=== PATIENT | female | born 1975 | race Caucasian/White ===

== ENCOUNTER 2018-03-30 10:13 | Inpatient (IN) | payer MEDICARE, MEDICAID ==
[2018-03-30] MEDS ORDERED: NS 0.9% 1000 ML** 1,000 ML IV.FLUID IV ONE (10:24)
--- NOTE | 2018-03-30 10:26 | ED ---
HPI Febrile Illness - HPI Summary HPI Summary: A 42 y/o morbidly obese F sent to ED from [facility] for fever (102.8 F) onset [employer]. Pt was unaware she had a fever when she arrived at her wound clinic appointment. Patient has acute on chronic bilateral LE wounds. She has had cellulitis on her front RLE since December, which is unusual for her. She has had past cellulitis on her LLE intermittently, but says her RLE is typically clear. She was evaluated at the [place] ED and given Doxy. Her last dose was a few weeks ago. Associated sx: abd pain, excess thirst, urinary sx. Denies CP. She did have her flu shot this year. Surgeries include hysterectomy, cataracts. Vitals at bedside: HR: 117 bpm, BP: 141/72. - History of Current Complaint Chief Complaint: EDFever Time Seen by Provider: 03/30/18 10:24 Hx Obtained From: Patient Onset/Duration: Started Weeks Ago - LE cellulitis, Atraumatic, Still Present Timing: Constant Temperature: 102.8 F - from wound clinic Initial Severity: Moderate Current Severity: Severe Pain Intensity: 6 Pain Scale Used: 0-10 Numeric Aggravating Factors: Nothing Alleviating Factors: Nothing Associated Signs and Symptoms: Chills, Diaphoresis, Drainage - from bilat leg wounds, Leg Swelling - bilat, Other: - pos: abd pain, excess thirst, urinary sx. neg: CP. Related History: Similar Diagnosis as: - cellulitis - Allergy/Home Medications Allergies/Adverse Reactions: Allergies Allergy/AdvReac Type Severity Reaction Status Date / Time cephalexin [From Keflex] Allergy Diarrhea Verified 03/30/18 12:07 levofloxacin [From Levaquin] Allergy Rash Verified 03/30/18 12:07 mercaptopurine Allergy See Comment Verified 03/30/18 12:08 mesalamine [From Asacol] Allergy Headache Verified 03/30/18 12:07 pantoprazole Allergy Vomiting Verified 03/30/18 12:07 paroxetine [From Paxil] Allergy Pain Verified 03/30/18 12:07 Penicillins Allergy Rash Verified 03/30/18 12:07 Sulfa (Sulfonamide Allergy Rash Verified 03/30/18 12:07 Antibiotics) vancomycin Allergy Rash Verified 03/30/18 12:07 zolpidem [From Ambien] Allergy Hallucinati Verified 03/30/18 12:07 ons cyanocobalamin (vitamin B12) AdvReac See Comment Verified 03/30/18 15:25 chlorine Allergy Rash Uncoded 03/30/18 12:07 lobster Allergy Abdominal Uncoded 03/30/18 12:07 Pain tea Allergy Vomiting Uncoded 03/30/18 12:07 uniboot Allergy Rash Uncoded 03/30/18 12:07 Home Medications: Home Medications Acetaminophen [Tylenol Extra Strength] 1,000 mg PO TID 03/30/18 [History Confirmed 03/30/18] Amantadine CAP* [Symmetrel CAP*] 100 mg PO BID 03/30/18 [History Confirmed 03/30] Budesonide CAP(NF) 9 mg PO DAILY 03/30/18 [History Confirmed 03/30/18] Calcium Carbonate [Calcium] 1,200 mg PO BID 03/30/18 [History Confirmed 03/30/18 ] Carbidopa/Levodop 25/100 MG(*) [Sinemet 25/100 TAB(*)] 1 tab PO 2000 03/30/18 [ History Confirmed 03/30/18] Carbidopa/Levodop 25/100 MG(*) [Sinemet 25/100 TAB(*)] 1 tab PO BEDTIME [History Confirmed 03/30/18] Carbidopa/Levodop 25/100 MG(*) [Sinemet 25/100 TAB(*)] 1.5 tab PO BID 03/30/18 [ History Confirmed 03/30/18] Carbidopa/Levodop 25/100 MG(*) [Sinemet 25/100 TAB(*)] 2 tab PO BID 03/30/18 [ History Confirmed 03/30/18] Cholestyramine/Aspartame [Prevalite Packet] 4 gm PO BID PRN 03/30/18 [History Confirmed 03/30/18] Ergocalciferol (Vitamin D2) [Vitamin D2] 25 mcg PO BID 03/30/18 [History Confirmed 03/30/18] Etodolac [Etodolac ER] 400 mg PO TID 03/30/18 [History Confirmed 03/30/18] Furosemide TAB* [Lasix TAB*] 20 mg PO DAILY 03/30/18 [History Confirmed 03/30/18 ] Levothyroxine TAB* [Synthroid TAB*] 75 mcg PO DAILY 03/30/18 [History Confirmed 03/30/18] Melatonin 5 mg PO BID 03/30/18 [History Confirmed 03/30/18] Melatonin 10 mg PO 2100 03/30/18 [History Confirmed 03/30/18] Metronidazole (TOPICAL)(NF) [Metrocream (NF)] 0.75 % TOPICAL BID 03/30/18 [ History Confirmed 03/30/18] Omeprazole (Nf) [Prilosec (NF)] 40 mg PO DAILY 03/30/18 [History Confirmed 03/30] Potassium Chlor TAB* [Klor Con ER TAB*] 20 meq PO DAILY 03/30/18 [History Confirmed 03/30/18] Ranitidine TAB (NF) [Zantac TAB (NF)] 150 mg PO BID PRN 03/30/18 [History Confirmed 03/30/18] Sertraline* [Zoloft*] 25 mg PO DAILY PRN 03/30/18 [History Confirmed 03/30/18] Sertraline* [Zoloft*] 100 mg PO DAILY 03/30/18 [History Confirmed 03/30/18] diPHENhydraMINE PO* [Benadryl PO 25 MG TAB*] 25 mg PO DAILY 03/30/18 [History Confirmed 03/30/18] hydrOXYzine HCL TAB* [Atarax 25 MG TAB*] 25 mg PO TID PRN 03/30/18 [History Confirmed 03/30/18] PMH/Surg Hx/FS Hx/Imm Hx Previously Healthy: No - cellulitis Endocrine/Hematology History: Reports: Other Endocrine/Hematological Disorders - morbid obesity Respiratory History: Reports: Hx Pulmonary Embolism - 2012 GI History: Reports: Hx Crohn's Disease, Other GI Disorders - colitis Musculoskeletal History: Reports: Hx Bursitis, Hx Congenital Bone Abnormalities - hip dysplasia , Hx of Fracture(s) - pelvis, LUE Sensory History: Reports: Other Sensory Impairments - ocular rosacea - Surgical History Surgery Procedure, Year, and Place: hip surg at , [facility], cholecystectomy Infectious Disease History: No Infectious Disease History: Denies: Traveled Outside the [place] in Last 30 Days - Family History Known Family History: Positive: Hypertension, Diabetes - Social History Occupation: Unemployed - OTHER Lives: With Family Alcohol Use: None Hx Substance Use: No Smoking Status (MU): Never Smoked Tobacco Review of Systems Positive: Fever, Chills, Skin Diaphoresis, Other - pos: excess thirst Negative: Chest Pain Respiratory: Negative Positive: Abdominal Pain Positive: other - pos: urinary sx (unspecified) Musculoskeletal: Other - pos: weeping wounds with pain to bilat LE Skin: Other - redness bilat lower legs, weeping wounds Neurological: Negative Psychological: Normal All Other Systems Reviewed And Are Negative: Yes Physical Exam - Summary Physical Exam Summary: Appearance: Ill-appearing, moderate pain distress, morbidly obese Skin: Warm, color reflects adequate perfusion, dry. Circumferential redness and weeping of approximately 10cm x 10cm wound to medial RLE posteriorly. A 5cm x 3cm wound that is draining. Silver scales, and bilateral circumferential redness to BLE. A 7cm x 5cm wound to RLE laterally. There is also a 5cm x 7cm wound on LLE. Head: Normal Head/Face inspection, atraumatic Eyes: Conjunctiva clear ENT: Normal inspection Neck: Supple, no nodes, no JVD Respiratory: Lungs clear, normal breath sounds, no respiratory distress Cardio: RRR, No murmur, pulses normal, brisk capillary refill Abdomen: Soft, intertrigonal redness. obese, diffusely tender Bowel sounds: Present Musculoskeletal: Strength Intact/ROM limited by body habitus, weeping wounds as above, bilat 3+ edema Psychological: Normal Neuro: Alert, muscle tone normal, no focal deficit Genital: bilateral vulvae and perineum are red with open wounds; atwood placed by nurses. She is draining dark cloudy urine Triage Information Reviewed: Yes Vital Signs On Initial Exam: Initial Vitals Temp Pulse Resp BP Pulse Ox 102.8 F 107 20 157/102 100 03/30/18 10:17 03/30/18 10:17 03/30/18 10:17 03/30/18 10:17 03/30/18 10:17 Vital Signs Reviewed: Yes Diagnostics - Vital Signs Vital Signs Temp Pulse Resp BP Pulse Ox 03/30/18 10:17 102.8 F 107 20 157/102 100 - Laboratory Result Diagrams: 03/30/18 11:12 03/30/18 11:12 Lab Statement: Any lab studies that have been ordered have been reviewed, and results considered in the medical decision making process. - Radiology CXR Radiology Interpretation Completed By: Radiologist Summary of Radiographic Findings: IMPRESSION: No evidence for acute disease. ED provider has reviewed this report. - EKG 10:41 Cardiac Rate: Tachycardia - 106 bpm EKG Rhythm: Sinus Tachycardia Summary of EKG Findings: An EKG at 10:41 reveals sinus tachy at 106 bpm with LAD with artifact. No acute changes. Course/Dx - Course Course Of Treatment: Pt is a 42 y/o F sent from the [facility] for fever ( 102.8 F). Pt was unaware she had a fever when she arrived for her appointment. Patient has acute on chronic bilateral LE wounds. She has had cellulitis on her front RLE since December, which is unusual for her. She has had past cellulitis on her LLE intermittently, but says her RLE is typically clear. She was evaluated at the [place] ED and given Doxy. Her last dose was a few weeks ago. Associated sx: abd pain, excess thirst, urinary sx. Denies CP. She did have her flu shot this year. Allergies noted, high blood pressure noted. Pt medications reviewed this visit. CXR is negative. An EKG at 10:41 reveals sinus tachy at 106 bpm with LAD with artifact. No acute changes. UA results show positive ketones, 2+ bilirubin, positive urobilinogen. Rapid flu A and B are negative. Sepsis protocol initiated. 30cc/kg given fluids. Antibiotics per hospitalist due to chronic nature of wounds, and allergies and exposure to multiple antibiotics in the past. . Pt is admitted to hospitalist service for further evaluation and treatment of bilateral LE cellulitis and leg edema - Febrile Illness Differential Diagnoses: Bacteremia, Cellulitis, Sepsis - Diagnoses Provider Diagnoses: Fever, Cellulitis, Morbid obesity, Open wound of both legs with complication, Sepsis - Provider Notifications Discussed Care Of Patient With: Luis Eduardo Worthy - hospitalist Time Discussed With Above Provider: 12:55 Instructed by Provider To: Admit As Inpatient - Critical Care Time Critical Care Time: 30-74 min - 30 minutes Discharge - Sign-Out/Discharge Documenting (check all that apply): Patient Departure - ADMIT Patient Received Moderate/Deep Sedation with Procedure: No - Discharge Plan Condition: Stable Disposition: ADMITTED TO [facility] - Billing Disposition and Condition Condition: STABLE Disposition: Admitted to [facility] - Attestation Statements Document Initiated by Scribe: Yes Documenting Scribe: Real Ariza Provider For Whom Kylieibsara is Documenting (Include Credential): Dr. Shanna Bañuelos MD Scribe Attestation: I, Rela Ariza, scribed for Dr. Shanna Bañuelos MD on 03/31/18 at 0020. Scribe Documentation Reviewed: Yes Provider Attestation: The documentation as recorded by the kylieibsara, Real Ariza accurately reflects the service I personally performed and the decisions made by me, Dr. Shanna Bañuelos MD Status of Scribe Document: Viewed
[2018-03-30 11:09] LABS: Activated Partial Thrombo Time 27.5 seconds (26.0-36.3); INR 0.98 (0.77-1.02)
[2018-03-30 11:22] LABS: ABS Basophils 0 10^3/ul (0-0.2); ABS Eosinophils 0 10^3/ul (0-0.6); ABS Lymphocytes 0.4 10^3/ul (1.0-4.8); ABS Monocytes 0.4 10^3/ul (0-0.8); ABS Neutrophils 10.4 10^3/ul (1.5-7.7); ABS Nucleated RBC 0 10^3/ul; Eosinophil % 0.1 %; Hematocrit 38 % (35-47); Hemoglobin 12.3 g/dl (12.0-16.0); Lymphocyte % 3.6 %; Mean Corpuscular HGB Conc 33 g/dl (31-36); Mean Corpuscular Hemoglobin 29 pg (27-31); Mean Corpuscular Volume 88 fL (80-97); Mean Platelet Volume 7.1 fL (7.4-10.4); Nucleated Red Blood Cells % 0.1; Platelet Count 208 10^3/ul (150-450); Red Blood Count 4.31 10^6/ul (4.00-5.40); Red Cell Distribution Width 15 % (10.5-15); White Blood Count 11.2 10^3/ul (3.5-10.8)
[2018-03-30 11:39] LABS: Albumin 3.7 g/dL (3.2-5.2); Albumin/Globulin Ratio 1.3 (1-3); BUN/Creatinine Ratio 24.5 (8-20); C Reactive Protein 100.51 mg/L (<8.01); Calcium 8.6 mg/dL (8.6-10.3); EGFR Non-African American 137.2 (>60); Globulin 2.8 g/dL (2-4); Potassium 3.8 mmol/L (3.5-5.0); Total Bilirubin 0.9 mg/dL (0.2-1.0); Total Protein 6.5 g/dL (6.4-8.9)
[2018-03-30] MEDS ORDERED: Ketorolac INJ* 30 MG/ML 1 ML VIAL IV PUSH ONE (11:49)
[2018-03-30 12:11] LABS: Urine Appearance Cloudy; Urine Bilirubin 2+ (Negative); Urine Blood Negative (Negative); Urine Color Yellow; Urine Glucose Negative (Negative); Urine Ketones Trace (Negative); Urine Nitrite Negative (Negative); Urine Protein Negative (Negative); Urine Specific Gravity 1.029 (1.010-1.030); Urine Urobilinogen Positive (Negative)
[2018-03-30 12:32] LABS: Influenza A Molecular NEGATIVE (Negative); Influenza B Molecular NEGATIVE (Negative)
[2018-03-30] MEDS ORDERED: Ondansetron INJ* 2 MG/ML VIAL IV PRN (13:46)
[2018-03-30] MEDS ORDERED: Acetaminophen TAB* 325 MG PO PRN (13:46)
[2018-03-30] MEDS ORDERED: Clindamycin 600 MG/D5W BAG(*) 600 MG/50 ML BAG IV ONE (13:46)
[2018-03-30] MEDS ORDERED: LORazepam INJ* 2 MG/ML 1 ML VIAL IV PUSH ONE ×2 (13:58→21:26)
[2018-03-30] MEDS ORDERED: Carbidopa/Levodop 25/100 MG TAB(*) PO ONE (14:10)
[2018-03-30] MEDS ORDERED: HYDROmorphone INJ1* 1 MG/ML SYRINGE IV ONE (14:20)
[2018-03-30] MEDS ORDERED: HYDROmorphone INJ1* 1 MG/ML SYRINGE ONE (14:22)
[2018-03-30] MEDS ORDERED: Sertraline* 25 MG TAB PO PRN (14:41)
[2018-03-30] MEDS ORDERED: hydrOXYzine HCL TAB* 25 MG PO PRN (14:41)
[2018-03-30] MEDS ORDERED: Famotidine TAB* 20 MG PO PRN (14:41)
[2018-03-30] MEDS ORDERED: Cholestyramine Resin* 4 GM POWDER PO PRN (14:41)
[2018-03-30 14:57] LABS: Erythrocyte Sed Rate 39 mm/Hr (0-20)
[2018-03-30] MEDS: Heparin VIAL(*) 5000 UNITS/ML VIAL (FIVE THOUSAND) SUBCUT SCH ×2 (16:33→21:50)
--- NOTE | 2018-03-30 17:44 | HP ---
CC: [facility] * ADMISSION HISTORY AND PHYSICAL: DATE OF ADMISSION: 03/30/18 PRIMARY CARE PROVIDER: [facility]. The patient has not been assigned a primary care provider yet. MY ATTENDING WHILE IN THE HOSPITAL: Dr. Luis Eduardo Worthy.* (DICTATED BY KIAH BANUELOS) CHIEF COMPLAINT: Leg wounds, fever. HISTORY OF PRESENT ILLNESS: Ms. Connolly is a 42-year-old female with past medical history significant for Crohn's disease, morbid obesity, osteoarthritis , lower extremity wounds and parkinsonism, who presents to the emergency department after transferring her care for her lower extremity wounds from the [facility] to the [facility]. The patient upon arrival there was found to have a fever and was sent over. The patient has had numerous episodes of cellulitis in her left lower extremity, which have all been treated appropriately. The patient never had issues with her right lower extremity until last January when she had likely reaction to ANGELA stocking and developed a wound there. The patient was treated approximately 1 month ago with doxycycline, which improved her lower extremity redness and pain, but did not fully resolve it. The patient has had a long history of lower extremity wounds and swelling. The patient is morbidly obese and the patient has been following with Wound Clinic for a long period of time. The patient has been having her wounds treated only with ABD pads and wrap gauze. The patient has not been having any other antimicrobial treatments to her lower legs and has not been having her normal wound care recently either due to her visiting nurse running out of gauze. The patient has not been having any subjective fevers. The patient always feels cold, but has not had any excessive chills. The patient has Crohn's disease and had 3 Crohn flares in the last year and each time with these she has been put on pulse doses of prednisone and has developed cellulitis. The patient does not feel as though she is having Crohn's flare now. The patient has not had abdominal pain or diarrhea, blood in her stool or mucus. The patient is not currently on prednisone treatment. Her last prednisone treatment was in September of last year. The patient is feeling tremulous. The patient has parkinsonism and follows with neurologist in [place]. The patient is on carbidopa/levodopa and missed her afternoon dose. The patient has no difficulty swallowing. The patient has had no cough, shortness of breath, chest pain, pain with urination. The patient has had numerous D and Cs for abnormal uterine bleeding and has recently had her Mirena removed several months ago and her last menstrual period had much more blood than normal, but she is not currently on her menstrual period. The patient has significant pain in her legs and back, which Toradol helped to decrease, but that is coming back. The patient states she does not normally have back pain, but is sensitive to it when she is in uncomfortable beds. The patient denies radicular symptoms. The patient in the emergency department had a fever, white count and tachycardia. Due to concern for cellulitis as well as lower leg wounds, we were asked to evaluate the patient for admission to the hospital. PAST MEDICAL HISTORY: Crohn's; osteoporosis; cataracts; arthritis; anemia; neuropathy; parkinsonism; anxiety; depression; rosacea; lumbar herniated disks; history of hypertension, resolved; mild intermittent asthma; Raynaud's syndrome ; irritable bowel syndrome; history of vaginal cysts, polyps and hyperplasia; ocular migraine; lower extremity wounds; pelvic fracture; history of provoked DVT and pulmonary embolism after surgery. PAST SURGICAL HISTORY: Congenital hip fixation at , numerous dilation and curettages, cholecystectomy. The patient has never had an abdominal surgery. Numerous colonoscopies. MEDICATIONS: 1. Amantadine 100 mg p.o. twice daily. 2. Hydroxyzine 25 mg p.o. 3 times daily. 3. Benadryl 25 mg p.o. nightly. 4. Budesonide enteric-coated 3 mg p.o. 3 times a day. 5. Calcium 1200 mg p.o. twice daily. 6. Carbidopa/levodopa 25/100 five times daily. 7. Carbidopa/levodopa ER 25/100 one tab p.o. nightly. 8. Prevalite 5.5 g 2 times daily. 9. Etodolac 400 mg p.o. 3 times daily. 10. Levothyroxine 75 mcg p.o. daily. 11. MetroCream 0.75% one to two applications daily. 12. Melatonin 20 mg nightly. 13. Miconazole powder 2% as needed. 14. Omeprazole delayed release 40 mg p.o. daily. 15. Ranitidine 150 mg p.o. daily. 16. Tylenol 500 mg p.o. 6 times daily as needed. 17. Vitamin D 25 mcg p.o. twice daily. 18. Sertraline 125 mg p.o. daily. 19. Furosemide 20 mg p.o. daily as needed for fluid retention. 20. Potassium 20 mEq p.o. daily when taking furosemide. ALLERGIES: TEA, LOBSTER, LAVENDER, CHLORINE, TUBIGRIP COMPRESSION SOCKS, UNNA BOOT, AMBIEN, ASACOL, PAXIL, CONTROL PILLS, PENICILLIN causes rash, KEFLEX causes diarrhea, VANCOMYCIN causes rash, SULFA causes rash, PANTOPRAZOLE causes vomiting, LEVAQUIN causes rash, MERCAPTOPURINE caused cytopenias, B12 PILLS caused bladder pain. FAMILY HISTORY: Father has ischemic colitis, high blood pressure, carotid artery stenosis, lung cancer, CVA. The patient's mother is healthy. The patient's uncle had epilepsy. SOCIAL HISTORY: The patient never smoked, drank, or used illicit drugs. 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 The patient is not and has no children. The patient's mother, Corrine Connolly, will be her surrogate decision maker. REVIEW OF SYSTEMS: A 14-point review of systems was reviewed with the patient and is negative except as above in the HPI. PHYSICAL EXAMINATION GENERAL: The patient is a 42-year-old female with obvious tremor, who is sitting in the bed, in no acute distress. VITAL SIGNS: At the time of evaluation, temperature 102.8, pulse rate 107, respiratory rate 20, oxygen saturation 100% on room air, blood pressure 157/102. HEENT: Head: Normocephalic, atraumatic. Sclerae anicteric. No conjunctival injection. Nasal mucosa moist. Oral mucosa moist. No pharyngeal erythema, discharge, or exudate. NECK: Supple, nontender. No lymphadenopathy. No carotid bruits auscultated. No JVD. RESPIRATORY: Clear to auscultation bilaterally. No wheezes, rales, or rhonchi. Diminished breath sounds throughout. CARDIAC: Regular rate and rhythm. No clicks, murmurs, gallops, or rubs. Pulses are 2+ in the bilateral dorsalis pedis, posterior tibialis, and radial areas. 4+ bilateral lower extremity edema noted. ABDOMEN: Soft, nontender, nondistended. Bowel sounds present and normoactive in all 4 quadrants. No hepatosplenomegaly. No abdominal bruits auscultated. No hepatojugular reflux. GENITOURINARY: No suprapubic or CVA tenderness. Vulvar irritation. Ivey in place draining dark urine with sediment. NEURO: Cranial nerves II through XII intact. No focal deficits. Alert and oriented x3. PSYCHIATRIC: Pleasant and cooperative. SKIN: Vulvar irritation as above. Bilateral lower extremities erythematous up to the knee with large open weeping areas on the bilateral calves circumferentially without purulent discharge, but associated erythema. DIAGNOSTIC STUDIES/LAB DATA: White blood cell count 11.2, hemoglobin 12.3, platelet count 208. INR 0.98, APTT 27.5. Sodium 135, potassium 3.8, chloride 103, carbon dioxide 24, anion gap 4, BUN 12, creatinine 0.49, glucose 107, lactic acid 1.1, calcium 8.6. Bilirubin 0.9, AST 14, ALT 14, alkaline phosphatase 17. Creatine kinase 24, troponin I of 0.00, CRP 100.51, BNP 52. Protein 6.5, albumin 3.7, globulin 2.8. Urine is yellow, cloudy, positive ketones, positive bilirubin and urobilinogen, negative nitrite, leukocyte esterase and glucose. Influenza A and B negative. Bilateral lower extremity wound PCR negative for MRSA, Staph aureus bilaterally. Studies: Chest x-ray shows no active cardiopulmonary disease. Electrocardiogram shows left axis deviation, tachycardia. No hypertrophy or enlargement. Incomplete right bundle branch block. Poor quality study due to tremor. No other significant abnormalities. No prior study to compare. ASSESSMENT AND PLAN/IMPRESSION: Ms. Connolly is a 42-year-old female with a past medical history significant for recurrent lower extremity cellulitis, Crohn's disease, provoked deep venous thrombosis and pulmonary embolism and parkinsonism , who presents to the emergency department from the [facility] Clinic for high fevers and increasing pain and erythema in her lower extremities. The patient will be admitted to the hospital for cellulitis causing sepsis and will be started on empiric antibiotics and monitored closely for improvement as well as wound care. 1. Bilateral lower extremity cellulitis. The patient has chronic wounds on her bilateral lower extremities. The patient has recurrent cellulitis in her left leg, but her right leg also appears to have cellulitis and is painful. The patient has significant swelling in her lower extremities. The patient will be diuresed. The patient will likely not tolerate compression at this time. The patient should have her legs elevated as much as possible. The patient will have a wound care consultation. The patient will be started on clindamycin for empiric coverage of strep and staph. The patient's wound cultures are pending. If the patient has no improvement, Infectious Disease consultation should be considered. The patient will have her home dressings of ABD pads and wrap gauze for now pending Wound Care consideration. The patient will have bilateral lower extremity Doppler to rule out deep venous thrombosis contributing to her swelling and cellulitis as the patient has a history of provoked deep venous thrombosis. The patient will be on probiotic while on clindamycin and monitored for C. difficile. 2. Sepsis. The patient is septic with elevated temperature, pulse rate, and white blood cell count. The patient received her fluid bolus while in the hospital. Given the patient's normotensive status and her lower extremity cellulitis, we will not continue fluids at this time. The patient has no signs of end organ dysfunction and her lactic acid is normal. 3. Crohn's disease. The patient is currently not having a Crohn's flare, though she had 3 last year. Continue the patient's budesonide. Monitor closely for C. diff, which may complicate Crohn's disease. 4. Parkinsonism. Continue the patient's carbidopa/levodopa and amantadine. 5. Osteoporosis. Continue the patient's vitamin D and calcium. 6. High blood pressure. The patient is currently normotensive. We will not treat blood pressure due to sepsis. 7. DVT prophylaxis: The patient has a history of provoked deep venous thrombosis. She will have heparin subcu and leg elevation as tolerated. 8. FEN: The patient will have a heart-healthy diet without caffeine. The patient will have no more fluids as above. 9. Disposition: The patient is admitted inpatient for lower extremity cellulitis and sepsis. TIME SPENT: Approximately 60 minutes was spent on the admission of this patient , 30 of which was spent [id number] with the patient obtaining history and physical and discussing treatment plan. This plan was discussed with my attending, Dr. Luis Eduardo Worthy, and he is in agreement. KIAH BANUELOS [id number] #: [id number] [place]
[2018-03-30] MEDS: Ketorolac INJ* 15 MG/ML 1 ML VIAL IV PUSH PRN (17:47)
[2018-03-30] MEDS: Calcium Carbonate TAB* 1250 MG (CALCIUM 500 MG) PO SCH (20:17)
[2018-03-30] MEDS: Acetaminophen TAB* 325 MG PO SCH (20:17)
[2018-03-30] MEDS: Carbidopa/Levodop 25/100 MG TAB(*) PO SCH (20:17)
[2018-03-30] MEDS: Amantadine CAP* 100 MG PO SCH (20:17)
[2018-03-30] MEDS: Melatonin 3 MG TAB PO SCH (20:18)
[2018-03-30] MEDS: Lactobacillus Acidophilus* 1 TAB PO SCH (20:18)
[2018-03-30] MEDS: LORazepam TAB(*) 0.5 MG PO PRN (20:18)
[2018-03-30] MEDS: Carbidopa/Levodop CR 50/200(*) TAB.CR PO SCH (20:18)
[2018-03-30] MEDS: oxyCODONE TAB* 5 MG TAB PO PRN (20:24)
[2018-03-30] MEDS ORDERED: ETODOLAC 400 MG PO SCH (21:00)
[2018-03-30] MEDS ORDERED: Metronidazole (TOPICAL)(NF) 45 GM TUBE TOPICAL SCH (21:00)
[2018-03-30] MEDS ORDERED: ERGOCALCIFEROL 25 MCG PO SCH (21:00)
[2018-03-30] MEDS ORDERED: NON FORMULARY MED* (Melatonin [Melatonin] 5 MG) PO SCH (21:00)
[2018-03-30] MEDS ORDERED: LORazepam INJ* 2 MG/ML 1 ML VIAL ONE (21:40)
[2018-03-30] MEDS: NS 0.9% 1000 ML** 1,000 ML IV SCH (21:46)
[2018-03-30] MEDS: Nystatin TOP POWDER* 15 GM BTL TOPICAL SCH (21:50)
[2018-03-30] MEDS: Clindamycin 600 MG/D5W BAG(*) 600 MG/50 ML BAG IV SCH (21:50)
[2018-03-31] MEDS: oxyCODONE TAB* 5 MG TAB PO PRN ×3 (02:54→19:36)
[2018-03-31] MEDS: Ketorolac INJ* 15 MG/ML 1 ML VIAL IV PUSH PRN ×3 (02:55→19:38)
[2018-03-31] MEDS: Clindamycin 600 MG/D5W BAG(*) 600 MG/50 ML BAG IV SCH ×3 (05:16→21:48)
[2018-03-31] MEDS: Heparin VIAL(*) 5000 UNITS/ML VIAL (FIVE THOUSAND) SUBCUT SCH ×3 (05:17→21:44)
[2018-03-31] MEDS: Levothyroxine TAB* 75 MCG TAB PO SCH (05:17)
[2018-03-31] MEDS: Carbidopa/Levodop 25/100 MG TAB(*) PO SCH ×5 (05:21→21:44)
[2018-03-31] MEDS: NS 0.9% 1000 ML** 1,000 ML IV SCH ×2 (05:24→14:23)
[2018-03-31] MEDS ORDERED: Budesonide CAP(NF) 3 MG PO SCH (09:00)
[2018-03-31] MEDS: Sertraline* 100 MG TAB PO SCH (09:05)
[2018-03-31] MEDS: Amantadine CAP* 100 MG PO SCH ×2 (09:05→18:08)
[2018-03-31] MEDS: Acetaminophen TAB* 325 MG PO SCH ×3 (09:07→21:43)
[2018-03-31] MEDS: predniSONE TAB* 5 MG PO SCH (09:10)
[2018-03-31] MEDS: Lactobacillus Acidophilus* 1 TAB PO SCH ×2 (09:10→21:43)
[2018-03-31] MEDS: Potassium Chlor TAB* 20 MEQ TAB.ER PO SCH (09:14)
[2018-03-31] MEDS: diPHENhydraMINE PO* 25 MG PO SCH (09:16)
[2018-03-31] MEDS: OMEPRAZOLE 20 MG PO SCH (09:16)
[2018-03-31] MEDS: Nystatin TOP POWDER* 15 GM BTL TOPICAL SCH ×3 (09:16→21:44)
[2018-03-31] MEDS: Torsemide TAB* 20 MG PO SCH (09:16)
[2018-03-31] MEDS: LORazepam TAB(*) 0.5 MG PO PRN ×3 (09:27→22:02)
[2018-03-31] MEDS: Calcium Carbonate TAB* 1250 MG (CALCIUM 500 MG) PO SCH ×2 (09:59→21:44)
--- NOTE | 2018-03-31 12:40 | PN ---
Subjective Date of Service: 03/31/18 Interval History: Pt seen and examined. Meds and labs reviewed. CC: N/A ROS: Denied CANALES/dizziness, F/C, N/V, CP, SOB, increased cough, sputum production , abd pain, diarrhea, constipation, dysuria, myalgias, arthralgias, throat pain , and new skin lesions. The rest of the 14 point ROS are unremarkable. PHYSICAL EXAM: GEN APPEARANCE: Awake, not in acute distress, (+)obese HEENT: NC/AT, PERRLA, moist oral mucosa, (-) throat erythema NECK: Soft, supple, (-) cervical LAD, (-)JVD HEART: S1S2 WNL, RRR, No MRG CHEST: CTA, BL, GAE, No W/R/R ABD: Soft, ND/NT, NABS 4x Q EXT: No C/C/BLLE (+)2 edema, erythema, BL legs cdi SKIN: Warm to touch PSYCH: No active psychosis, hallucinations, depression, SI/HI Objective Active Medications: Acetaminophen (Tylenol Tab*) 975 mg PO TID [facility] Last Admin: 03/31/18 09:07 Dose: 975 mg Amantadine HCl (Symmetrel Cap*) 100 mg PO BID [facility] Last Admin: 03/31/18 09:05 Dose: 100 mg Calcium Carbonate (Calcium Carbonate Tab*) 1,250 mg PO BID [facility] Last Admin: 03/31/18 09:59 Dose: 1,250 mg Carbidopa/Levodopa (Sinemet 25/100 Tab(*)) 1 tab PO BEDTIME [facility] Last Admin: 03/30/18 20:17 Dose: 1 tab Carbidopa/Levodopa (Sinemet 25/100 Tab(*)) 1.5 tab PO DAILY@0900 [facility] Last Admin: 03/31/18 09:04 Dose: 1.5 tab Carbidopa/Levodopa (Sinemet 25/100 Tab(*)) 2 tab PO 0600,1200,1700 [facility] Last Admin: 03/31/18 12:11 Dose: 2 tab Carbidopa/Levodopa (Sinemet Cr 50/200(*)) 0.5 tab.cr PO BEDTIME [facility] Last Admin: 03/30/18 20:18 Dose: 0.5 tab.cr Cholestyramine Resin (Questran*) 4 gm PO BID PRN PRN Reason: DIARRHEA Diphenhydramine HCl (Benadryl Po*) 25 mg PO DAILY [facility] Last Admin: 03/31/18 09:16 Dose: Not Given Famotidine (Pepcid Tab*) 20 mg PO BID PRN; Protocol PRN Reason: INDIGESTION Heparin Sodium (Porcine) (Heparin Vial(*)) 5,000 units SUBCUT Q8HR [facility] Last Admin: 03/31/18 05:17 Dose: 5,000 units Hydroxyzine HCl (Atarax Tab*) 25 mg PO TID PRN PRN Reason: ANXIETY Clindamycin HCl/Dextrose (Cleocin 600 Mg/50 Ml(*)) 600 mg in 50 mls @ 100 mls/ hr IV Q8H [facility] Last Admin: 03/31/18 05:16 Dose: 100 mls/hr Sodium Chloride (Ns 0.9% 1000 Ml) 1,000 mls @ 125 mls/hr IV PER RATE [facility] Last Admin: 03/31/18 05:24 Dose: 125 mls/hr Ketorolac Tromethamine (Toradol Inj*) 15 mg IV PUSH Q6H PRN PRN Reason: PAIN Last Admin: 03/31/18 10:45 Dose: 15 mg Lactobacillus Rhamnosus (Lactobacillus Acidophilus*) 1 tab PO BID [facility] Last Admin: 03/31/18 09:10 Dose: 1 tab Levothyroxine Sodium (Synthroid Tab*) 75 mcg PO DAILY@0600 [facility] Last Admin: 03/31/18 05:17 Dose: 75 mcg Lorazepam (Ativan Tab(*)) 0.5 mg PO Q4H PRN PRN Reason: ANXIETY Last Admin: 03/31/18 09:27 Dose: 0.5 mg Melatonin (Melatonin) 9 mg PO 2100 [facility] Last Admin: 03/30/18 20:18 Dose: 9 mg Nystatin (Nystatin Top Powder*) 1 applic TOPICAL TID [facility] Last Admin: 03/31/18 09:16 Dose: 1 applic Omeprazole (Prilosec Cap*) 40 mg PO DAILY@0730 [facility] Last Admin: 03/31/18 09:16 Dose: 40 mg Ondansetron HCl (Zofran Inj*) 4 mg IV Q6H PRN PRN Reason: NAUSEA Oxycodone HCl (Roxycodone Tab*) 5 mg PO Q6H PRN PRN Reason: PAIN Last Admin: 03/31/18 09:27 Dose: 5 mg Potassium Chloride (Klor Con Er Tab*) 20 meq PO DAILY [facility] Last Admin: 03/31/18 09:14 Dose: 20 meq Prednisone (Deltasone Tab*) 15 mg PO DAILY [facility] Last Admin: 03/31/18 09:10 Dose: 15 mg Sertraline HCl (Zoloft*) 100 mg PO DAILY [facility] Last Admin: 03/31/18 09:05 Dose: 100 mg Torsemide (Demadex*) 10 mg PO DAILY [facility] Last Admin: 03/31/18 09:16 Dose: Not Given Vital Signs - 8 hr 03/31/18 03/31/18 03/31/18 05:14 06:35 09:27 Temperature 99.8 F Pulse Rate 93 Respiratory 18 30 20 Rate Blood Pressure 132/62 (mmHg) O2 Sat by Pulse 94 Oximetry Oxygen Devices in Use Now: None Result Diagrams: 03/30/18 11:12 03/30/18 11:12 Microbiology and Other Data: Microbiology 03/30/18 11:12 Aerobic Blood Culture - Preliminary Blood Venous No Growth Day 1 Anaerobic Blood Culture - Preliminary No Growth Day 1 03/30/18 10:41 Aerobic Blood Culture - Preliminary Blood Venous No Growth Day 1 Anaerobic Blood Culture - Preliminary No Growth Day 1 03/30/18 11:27 Skin and Soft Tissue MRSA/MSSA (PCR - Final Leg Right Mrsa Negative S.aureus Negative Gram Stain - Final 03/30/18 11:27 Skin and Soft Tissue MRSA/MSSA (PCR - Final Leg Left Mrsa Negative S.aureus Negative Gram Stain - Final 03/30/18 11:55 Influenza Types A,B Antigen - Final Nasal Specimen received for Influenza A/B Molecular testing Assess/Plan/Problems-Billing Assessment: - Patient Problems (1) Cellulitis Current Visit: Yes Status: Acute Code(s): L03.90 - CELLULITIS, UNSPECIFIED SNOMED Code(s): 034943697 Comment: #BLLE cellulitis: -Continue IV Clindamycin, IV q8H, day #1 -Blood Cx (-) x 1 day -Soft tissue GS: MRSA and MSSA (-) (2) Sepsis Current Visit: Yes Status: Acute Comment: -Resolved -Likely due to above (3) Parkinson disease Current Visit: Yes Status: Acute Code(s): G20 - PARKINSON'S DISEASE SNOMED Code(s): 41159722 Comment: -Continue Carbidopa/Levodopa (4) Hypothyroidism Current Visit: Yes Status: Acute Code(s): E03.9 - HYPOTHYROIDISM, UNSPECIFIED SNOMED Code(s): 02466004 Comment: -Continue Levothyroxine -Will check TSH (5) DVT prophylaxis Current Visit: Yes Status: Acute Code(s): RSP1574 - SNOMED Code(s): 037436821 Comment: -Continue Heparin SQq4H Status and Disposition: -As above
[2018-03-31] MEDS: Carbidopa/Levodop CR 50/200(*) TAB.CR PO SCH (21:42)
[2018-03-31] MEDS: Melatonin 3 MG TAB PO SCH (21:43)
[2018-04-01] MEDS: NS 0.9% 1000 ML** 1,000 ML IV SCH (00:08)
[2018-04-01] MEDS: oxyCODONE TAB* 5 MG TAB PO PRN ×4 (01:22→22:39)
[2018-04-01] MEDS: LORazepam TAB(*) 0.5 MG PO PRN ×4 (02:07→20:30)
[2018-04-01] MEDS: Ketorolac INJ* 15 MG/ML 1 ML VIAL IV PUSH PRN ×2 (02:07→16:28)
[2018-04-01] MEDS: Carbidopa/Levodop 25/100 MG TAB(*) PO SCH ×5 (05:54→20:17)
[2018-04-01] MEDS: Heparin VIAL(*) 5000 UNITS/ML VIAL (FIVE THOUSAND) SUBCUT SCH ×3 (05:54→22:40)
[2018-04-01] MEDS: Levothyroxine TAB* 75 MCG TAB PO SCH (05:54)
[2018-04-01] MEDS: Clindamycin 600 MG/D5W BAG(*) 600 MG/50 ML BAG IV SCH ×2 (05:55→13:15)
[2018-04-01] MEDS ORDERED: cefTRIAXone(*) 1 GM in NS 0.9% 50 ML* 50 ML IVPB SCH (09:00)
[2018-04-01] MEDS: Amantadine CAP* 100 MG PO SCH ×2 (09:07→18:00)
[2018-04-01] MEDS: Sertraline* 100 MG TAB PO SCH (09:08)
[2018-04-01] MEDS: Torsemide TAB* 20 MG PO SCH (09:10)
[2018-04-01] MEDS: Potassium Chlor TAB* 20 MEQ TAB.ER PO SCH (09:11)
[2018-04-01] MEDS: Calcium Carbonate TAB* 1250 MG (CALCIUM 500 MG) PO SCH ×2 (09:13→20:18)
[2018-04-01] MEDS: predniSONE TAB* 5 MG PO SCH (09:13)
[2018-04-01] MEDS: OMEPRAZOLE 20 MG PO SCH (09:14)
[2018-04-01] MEDS: Lactobacillus Acidophilus* 1 TAB PO SCH ×2 (09:14→20:20)
[2018-04-01] MEDS: diPHENhydraMINE PO* 25 MG PO SCH (09:14)
[2018-04-01] MEDS: Acetaminophen TAB* 325 MG PO SCH ×3 (09:15→20:17)
[2018-04-01] MEDS: Nystatin TOP POWDER* 15 GM BTL TOPICAL SCH ×3 (09:17→20:20)
[2018-04-01] MEDS ORDERED: Furosemide IV* 10 MG/ML VIAL (40 MG) IV ONE (15:08)
--- NOTE | 2018-04-01 15:17 | PN ---
Subjective Date of Service: 04/01/18 Interval History: Pt seen and examined. Meds and labs reviewed. CC: SOB earlier. Resolved w/stopping IVF. Pt given additional dose of Lasix later. ROS: Denied CANALES/dizziness, F/C, N/V, CP, increased cough, sputum production, abd pain, diarrhea, constipation, dysuria, myalgias, arthralgias, throat pain, and new skin lesions. The rest of the 14 point ROS are unremarkable. PHYSICAL EXAM: GEN APPEARANCE: Awake, not in acute distress, (+)obese HEENT: NC/AT, PERRLA, moist oral mucosa, (-) throat erythema NECK: Soft, supple, (-) cervical LAD, (-)JVD HEART: S1S2 WNL, RRR, No MRG CHEST: CTA, BL, GAE, No W/R/R ABD: Soft, ND/NT, NABS 4x Q EXT: No C/C/BLLE (+)2 edema, erythema, BL legs cdi SKIN: Warm to touch PSYCH: No active psychosis, hallucinations, depression, SI/HI Objective Active Medications: Acetaminophen (Tylenol Tab*) 975 mg PO TID [facility] Last Admin: 04/01/18 13:12 Dose: 975 mg Amantadine HCl (Symmetrel Cap*) 100 mg PO BID@0900,1700 [facility] Last Admin: 04/01/18 09:07 Dose: 100 mg Calcium Carbonate (Calcium Carbonate Tab*) 1,250 mg PO BID [facility] Last Admin: 04/01/18 09:13 Dose: 1,250 mg Carbidopa/Levodopa (Sinemet 25/100 Tab(*)) 1 tab PO BEDTIME [facility] Last Admin: 03/31/18 21:44 Dose: 1 tab Carbidopa/Levodopa (Sinemet 25/100 Tab(*)) 1.5 tab PO DAILY@0900 [facility] Last Admin: 04/01/18 09:08 Dose: 1.5 tab Carbidopa/Levodopa (Sinemet 25/100 Tab(*)) 2 tab PO 0600,1200,1700 [facility] Last Admin: 04/01/18 13:12 Dose: 2 tab Carbidopa/Levodopa (Sinemet Cr 50/200(*)) 0.5 tab.cr PO BEDTIME [facility] Last Admin: 03/31/18 21:42 Dose: 0.5 tab.cr Cholestyramine Resin (Questran*) 4 gm PO BID PRN PRN Reason: DIARRHEA Diphenhydramine HCl (Benadryl Po*) 25 mg PO DAILY [facility] Last Admin: 04/01/18 09:14 Dose: Not Given Famotidine (Pepcid Tab*) 20 mg PO BID PRN; Protocol PRN Reason: INDIGESTION Furosemide (Lasix Iv*) 40 mg IV ONCE ONE Stop: 04/01/18 15:09 Heparin Sodium (Porcine) (Heparin Vial(*)) 5,000 units SUBCUT Q8HR [facility] Last Admin: 04/01/18 13:14 Dose: 5,000 units Hydroxyzine HCl (Atarax Tab*) 25 mg PO TID PRN PRN Reason: ANXIETY Last Admin: 03/31/18 19:38 Dose: 25 mg Cefepime HCl (Maxipime 2 Gm In Dextrose Duplex (*)) 2 gm in 50 mls @ 100 mls/ hr IV Q12H [facility] Ketorolac Tromethamine (Toradol Inj*) 15 mg IV PUSH Q6H PRN PRN Reason: PAIN Last Admin: 04/01/18 02:07 Dose: 15 mg Lactobacillus Rhamnosus (Lactobacillus Acidophilus*) 1 tab PO BID [facility] Last Admin: 04/01/18 09:14 Dose: 1 tab Levothyroxine Sodium (Synthroid Tab*) 75 mcg PO DAILY@0600 [facility] Last Admin: 04/01/18 05:54 Dose: 75 mcg Lorazepam (Ativan Tab(*)) 0.5 mg PO Q4H PRN PRN Reason: ANXIETY Last Admin: 04/01/18 09:10 Dose: 0.5 mg Melatonin (Melatonin) 9 mg PO 2100 [facility] Last Admin: 03/31/18 21:43 Dose: 9 mg Nystatin (Nystatin Top Powder*) 1 applic TOPICAL TID [facility] Last Admin: 04/01/18 13:15 Dose: 1 applic Omeprazole (Prilosec Cap*) 40 mg PO DAILY@0730 [facility] Last Admin: 04/01/18 09:14 Dose: 40 mg Ondansetron HCl (Zofran Inj*) 4 mg IV Q6H PRN PRN Reason: NAUSEA Oxycodone HCl (Roxycodone Tab*) 5 mg PO Q6H PRN PRN Reason: PAIN Last Admin: 04/01/18 09:11 Dose: 5 mg Potassium Chloride (Klor Con Er Tab*) 20 meq PO DAILY [facility] Last Admin: 04/01/18 09:11 Dose: 20 meq Prednisone (Deltasone Tab*) 15 mg PO DAILY [facility] Last Admin: 04/01/18 09:13 Dose: 15 mg Sertraline HCl (Zoloft*) 100 mg PO DAILY [facility] Last Admin: 04/01/18 09:08 Dose: 100 mg Torsemide (Demadex*) 10 mg PO DAILY [facility] Last Admin: 04/01/18 09:10 Dose: 10 mg Vital Signs - 8 hr 04/01/18 04/01/18 04/01/18 08:36 09:10 09:11 Respiratory 22 22 Rate Blood Pressure 130/72 (mmHg) 04/01/18 11:30 Respiratory 18 Rate Blood Pressure (mmHg) Oxygen Devices in Use Now: None Result Diagrams: 03/30/18 11:12 03/30/18 11:12 Microbiology and Other Data: Microbiology 03/30/18 11:12 Aerobic Blood Culture - Preliminary Blood Venous No Growth Day 1 Anaerobic Blood Culture - Preliminary No Growth Day 1 03/30/18 10:41 Aerobic Blood Culture - Preliminary Blood Venous No Growth Day 1 Anaerobic Blood Culture - Preliminary No Growth Day 1 03/30/18 11:27 Skin and Soft Tissue MRSA/MSSA (PCR - Final Leg Right Mrsa Negative S.aureus Negative Gram Stain - Final 03/30/18 11:27 Skin and Soft Tissue MRSA/MSSA (PCR - Final Leg Left Mrsa Negative S.aureus Negative Gram Stain - Final 03/30/18 11:55 Influenza Types A,B Antigen - Final Nasal Specimen received for Influenza A/B Molecular testing Assess/Plan/Problems-Billing Assessment: - Patient Problems (1) Cellulitis Current Visit: Yes Status: Acute Code(s): L03.90 - CELLULITIS, UNSPECIFIED SNOMED Code(s): 115928342 Comment: #BLLE cellulitis: -Blood Cx (-) x 2 days -Wound Cx: P. aeruginosa and P. Mirabilis; both sensitive to Cefepime; will D/C Clindamycin and place pt on Cefepime, abx day #03/19 -Touch base w/Dr. Vallejo tomorrow to see Tuesday on planned D/C (2) SOB (shortness of breath) Current Visit: Yes Status: Acute Code(s): R06.02 - SHORTNESS OF BREATH SNOMED Code(s): 675993555 Comment: -Likely due to iatrogenic pulmonary interstitial edema due to IVF therapy given septic presentation -Continue to hold IVF -Continue Torsemide -Will give Lasix 40 mg IV x1 (3) Sepsis Current Visit: Yes Status: Acute Comment: -Resolved -Likely due to above (4) Parkinson disease Current Visit: Yes Status: Acute Code(s): G20 - PARKINSON'S DISEASE SNOMED Code(s): 55337075 Comment: -Continue Carbidopa/Levodopa (5) Hypothyroidism Current Visit: Yes Status: Acute Code(s): E03.9 - HYPOTHYROIDISM, UNSPECIFIED SNOMED Code(s): 22549934 Comment: -Continue Levothyroxine -Will await TSH result (6) DVT prophylaxis Current Visit: Yes Status: Acute Code(s): BHD0094 - SNOMED Code(s): 254217254 Comment: -Continue Heparin SQq4H Status and Disposition: -To inform Dr. Vallejo in AM for possible D/C on Tuesday
[2018-04-01] MEDS: Cefepime 2 GM in Dextrose(*) 2 GM/50 ML BAG IV SCH (18:00)
[2018-04-01] MEDS: Melatonin 3 MG TAB PO SCH (20:17)
[2018-04-01] MEDS: Ketorolac INJ* 30 MG/ML 1 ML VIAL IV PUSH PRN (20:18)
[2018-04-01] MEDS: Carbidopa/Levodop CR 50/200(*) TAB.CR PO SCH (20:18)
[2018-04-02] MEDS: LORazepam TAB(*) 0.5 MG PO PRN ×4 (03:21→21:06)
[2018-04-02] MEDS: Ketorolac INJ* 30 MG/ML 1 ML VIAL IV PUSH PRN ×2 (03:21→17:14)
[2018-04-02] MEDS: Carbidopa/Levodop 25/100 MG TAB(*) PO SCH ×5 (05:15→21:07)
[2018-04-02] MEDS: Cefepime 2 GM in Dextrose(*) 2 GM/50 ML BAG IV SCH ×2 (05:15→17:41)
[2018-04-02] MEDS: oxyCODONE TAB* 5 MG TAB PO PRN ×4 (05:15→23:09)
[2018-04-02] MEDS: Heparin VIAL(*) 5000 UNITS/ML VIAL (FIVE THOUSAND) SUBCUT SCH ×3 (05:16→21:07)
[2018-04-02] MEDS: Levothyroxine TAB* 75 MCG TAB PO SCH (05:16)
[2018-04-02 08:27] LABS: ABS Basophils 0 10^3/ul (0-0.2); ABS Eosinophils 0.1 10^3/ul (0-0.6); ABS Lymphocytes 1.2 10^3/ul (1.0-4.8); ABS Monocytes 0.5 10^3/ul (0-0.8); ABS Neutrophils 3.8 10^3/ul (1.5-7.7); ABS Nucleated RBC 0 10^3/ul; Eosinophil % 1.6 %; Hematocrit 34 % (35-47); Hemoglobin 11.2 g/dl (12.0-16.0); Lymphocyte % 20.8 %; Mean Corpuscular HGB Conc 33 g/dl (31-36); Mean Corpuscular Hemoglobin 29 pg (27-31); Mean Corpuscular Volume 87 fL (80-97); Mean Platelet Volume 7.3 fL (7.4-10.4); Nucleated Red Blood Cells % 0.2; Platelet Count 195 10^3/ul (150-450); Red Blood Count 3.93 10^6/ul (4.00-5.40); Red Cell Distribution Width 16 % (10.5-15); White Blood Count 5.7 10^3/ul (3.5-10.8)
[2018-04-02 08:51] LABS: Albumin 2.7 g/dL (3.2-5.2); Magnesium 1.8 mg/dL (1.9-2.7); Potassium 3.6 mmol/L (3.5-5.0); Total Bilirubin 0.5 mg/dL (0.2-1.0)
[2018-04-02 08:57] LABS: Albumin/Globulin Ratio 1.1 (1-3); BUN/Creatinine Ratio 29.2 (8-20); EGFR Non-African American 140.5 (>60); Globulin 2.5 g/dL (2-4); Phosphorus 2.8 mg/dL (2.5-5.0); Total Protein 5.2 g/dL (6.4-8.9)
[2018-04-02] MEDS: Sertraline* 100 MG TAB PO SCH (09:19)
[2018-04-02] MEDS: Amantadine CAP* 100 MG PO SCH ×2 (09:19→17:12)
[2018-04-02] MEDS: Lactobacillus Acidophilus* 1 TAB PO SCH ×2 (09:21→21:06)
[2018-04-02] MEDS: Calcium Carbonate TAB* 1250 MG (CALCIUM 500 MG) PO SCH ×2 (09:21→21:06)
[2018-04-02] MEDS: OMEPRAZOLE 20 MG PO SCH (09:21)
[2018-04-02] MEDS: Potassium Chlor TAB* 20 MEQ TAB.ER PO SCH (09:22)
[2018-04-02] MEDS: Acetaminophen TAB* 325 MG PO SCH ×3 (09:22→21:06)
[2018-04-02] MEDS: Torsemide TAB* 20 MG PO SCH (09:23)
[2018-04-02] MEDS: predniSONE TAB* 5 MG PO SCH (09:24)
[2018-04-02] MEDS: Nystatin TOP POWDER* 15 GM BTL TOPICAL SCH ×3 (09:26→21:07)
[2018-04-02] MEDS: diPHENhydraMINE PO* 25 MG PO SCH (09:26)
--- NOTE | 2018-04-02 15:35 | PN ---
Subjective Date of Service: 04/02/18 Interval History: Pt seen and examined. Meds and labs reviewed. CC: Anxiety; BLLE pain 3/10 at rest and jumps to 9/10 on movement ROS: Denied CANALES/dizziness, F/C, N/V, CP, SOB, increased cough, sputum production , abd pain, diarrhea, constipation, dysuria, throat pain, and new skin lesions. The rest of the 14 point ROS are unremarkable. PHYSICAL EXAM: GEN APPEARANCE: Awake, not in acute distress, (+)obese HEENT: NC/AT, PERRLA, moist oral mucosa, (-) throat erythema NECK: Soft, supple, (-) cervical LAD, (-)JVD HEART: S1S2 WNL, RRR, No MRG CHEST: CTA, BL, GAE, No W/R/R ABD: Soft, ND/NT, NABS 4x Q EXT: No C/C/BLLE (+)2 edema, erythema, continues to improve; BL legs cdi SKIN: Warm to touch PSYCH: No active psychosis, hallucinations, depression, SI/HI Objective Active Medications: Acetaminophen (Tylenol Tab*) [address] [facility] Last Admin: 04/02/18 13:45 Dose: 975 mg Amantadine HCl (Symmetrel Cap*) 100 mg PO BID@0900,1700 [facility] Last Admin: 04/02/18 09:19 Dose: 100 mg Calcium Carbonate (Calcium Carbonate Tab*) 1,[address] [facility] Last Admin: 04/02/18 09:21 Dose: 1,250 mg Carbidopa/Levodopa (Sinemet 25/100 Tab(*)) [address] [facility] Last Admin: 04/01/18 20:17 Dose: 1 tab Carbidopa/Levodopa (Sinemet 25/100 Tab(*)) 1.5 tab PO DAILY@0900 [facility] Last Admin: 04/02/18 09:19 Dose: 1.5 tab Carbidopa/Levodopa (Sinemet 25/100 Tab(*)) 2 tab PO 0600,1200,1700 [facility] Last Admin: 04/02/18 11:58 Dose: 2 tab Carbidopa/Levodopa (Sinemet Cr 50/200(*)) 0.[address] [facility] Last Admin: 04/01/18 20:18 Dose: 0.5 tab.cr Cholestyramine Resin (Questran*) 4 gm PO BID PRN PRN Reason: DIARRHEA Diphenhydramine HCl (Benadryl Po*) [address] [facility] Last Admin: 04/02/18 09:26 Dose: Not Given Famotidine (Pepcid Tab*) 20 mg PO BID PRN; Protocol PRN Reason: INDIGESTION Gabapentin (Neurontin Cap(*)) [address] [facility] Heparin Sodium (Porcine) (Heparin Vial(*)) 5,[address] [facility] Last Admin: 04/02/18 14:00 Dose: 5,000 units Hydroxyzine HCl (Atarax Tab*) 50 mg PO TID PRN PRN Reason: ANXIETY Cefepime HCl (Maxipime 2 Gm In Dextrose Duplex (*)) 2 gm in 50 mls @ 100 mls/ hr IV Q12H [facility] Last Admin: 04/02/18 05:15 Dose: 100 mls/hr Ketorolac Tromethamine (Toradol Inj*) 30 mg IV PUSH Q6H PRN PRN Reason: PAIN Last Admin: 04/02/18 03:21 Dose: 30 mg Lactobacillus Rhamnosus (Lactobacillus Acidophilus*) [address] [facility] Last Admin: 04/02/18 09:21 Dose: 1 tab Levothyroxine Sodium (Synthroid Tab*) 75 mcg PO DAILY@0600 [facility] Last Admin: 04/02/18 05:16 Dose: 75 mcg Lorazepam (Ativan Tab(*)) 0.5 mg PO Q4H PRN PRN Reason: ANXIETY Last Admin: 04/02/18 09:24 Dose: 0.5 mg Melatonin (Melatonin) [address] [facility] Last Admin: 04/01/18 20:17 Dose: 9 mg Nystatin (Nystatin Top Powder*) [address] [facility] Last Admin: 04/02/18 14:00 Dose: 1 applic Omeprazole (Prilosec Cap*) 40 mg PO DAILY@0730 [facility] Last Admin: 04/02/18 09:21 Dose: 40 mg Ondansetron HCl (Zofran Inj*) 4 mg IV Q6H PRN PRN Reason: NAUSEA Oxycodone HCl (Roxycodone Tab*) 5 mg PO Q6H PRN PRN Reason: PAIN Last Admin: 04/02/18 11:58 Dose: 5 mg Potassium Chloride (Klor Con Er Tab*) [address] [facility] Last Admin: 04/02/18 09:22 Dose: 20 meq Prednisone (Deltasone Tab*) [address] [facility] Last Admin: 04/02/18 09:24 Dose: 15 mg Sertraline HCl (Zoloft*) [address] [facility] Last Admin: 04/02/18 09:19 Dose: 100 mg Torsemide (Demadex*) [address] [facility] Last Admin: 04/02/18 09:23 Dose: 10 mg Vital Signs - 8 hr 04/02/18 04/02/18 04/02/18 07:46 08:00 09:24 Temperature 98.1 F Pulse Rate 80 Respiratory 16 20 20 Rate Blood Pressure 137/74 (mmHg) O2 Sat by Pulse 92 92 Oximetry 04/02/18 04/02/18 04/02/18 11:30 11:58 12:16 Temperature 97.6 F Pulse Rate 81 Respiratory 16 18 22 Rate Blood Pressure 135/89 (mmHg) O2 Sat by Pulse 92 Oximetry 04/02/18 14:01 Temperature Pulse Rate Respiratory 16 Rate Blood Pressure (mmHg) O2 Sat by Pulse Oximetry Oxygen Devices in Use Now: None Result Diagrams: 04/02/18 07:49 04/02/18 07:49 Microbiology and Other Data: Microbiology 03/30/18 11:12 Aerobic Blood Culture - Preliminary Blood Venous No Growth Day 1 Anaerobic Blood Culture - Preliminary No Growth Day 1 03/30/18 10:41 Aerobic Blood Culture - Preliminary Blood Venous No Growth Day 1 Anaerobic Blood Culture - Preliminary No Growth Day 1 03/30/18 11:27 Skin and Soft Tissue MRSA/MSSA (PCR - Final Leg Right Mrsa Negative S.aureus Negative Gram Stain - Final 03/30/18 11:27 Skin and Soft Tissue MRSA/MSSA (PCR - Final Leg Left Mrsa Negative S.aureus Negative Gram Stain - Final 03/30/18 11:55 Influenza Types A,B Antigen - Final Nasal Specimen received for Influenza A/B Molecular testing Assess/Plan/Problems-Billing Assessment: - Patient Problems (1) Anxiety Current Visit: Yes Status: Acute Code(s): F41.9 - ANXIETY DISORDER, UNSPECIFIED SNOMED Code(s): 46381479 Comment: -Mentions that one doctor told her she was allergic to Buspar and one took it off her allergy list -At this time will continue to not prescribe Buspar given it can cause Parkinson s like syndrome and pt diagnosed w/Parkinsonism w/c likely led to its discontinueation previously -Will continue PRN Ativan and increase Hydroxyzine PRN -Continue anti-depressants (2) Lower extremity pain, bilateral Current Visit: Yes Status: Acute Code(s): M79.604 - PAIN IN RIGHT LEG; M79.605 - PAIN IN LEFT LEG SNOMED Code(s): 63980585 Comment: -Likely due to known neuropathy on top of BLLE cellulitis -Continue scheduled Tylenol dose -Will place pt on Gabapentin -Continue PRN Ketorolac (3) Cellulitis Current Visit: Yes Status: Acute Code(s): L03.90 - CELLULITIS, UNSPECIFIED SNOMED Code(s): 885309475 Comment: #BLLE cellulitis: -Blood Cx (-) x 3 days -Wound Cx: P. aeruginosa and P. Mirabilis; both sensitive to Cefepime; will D/C Clindamycin and place pt on Cefepime, abx day #04/16 -Touched base w/Dr. Vallejo and will await input in AM (4) SOB (shortness of breath) Current Visit: Yes Status: Acute Code(s): R06.02 - SHORTNESS OF BREATH SNOMED Code(s): 090761488 Comment: -Improved -Likely due to iatrogenic pulmonary interstitial edema due to IVF therapy given septic presentation -Continue to hold IVF -Continue Torsemide -Received 1x IV Lasix 40 mg yesterday -For 2D echo in AM (5) Sepsis Current Visit: Yes Status: Acute Comment: -Resolved -Likely due to above (6) Parkinson disease Current Visit: Yes Status: Acute Code(s): G20 - PARKINSON'S DISEASE SNOMED Code(s): 70769796 Comment: -Continue Carbidopa/Levodopa (7) Hypothyroidism Current Visit: Yes Status: Acute Code(s): E03.9 - HYPOTHYROIDISM, UNSPECIFIED SNOMED Code(s): 82611659 Comment: -Continue Levothyroxine -Will await TSH result (8) DVT prophylaxis Current Visit: Yes Status: Acute Code(s): JGH3068 - SNOMED Code(s): 616062193 Comment: -Continue Heparin SQq8H Status and Disposition: -Awaiting official input from Dr. Vallejo -For PT eval in AM; pt mentions she lives with her mother and niece -Possible D/C in 1-2 days
[2018-04-02] MEDS ORDERED: busPIRone TAB* 10 MG PO SCH (16:00)
[2018-04-02] MEDS: Gabapentin CAP(*) 100 MG PO SCH ×2 (17:11→21:07)
[2018-04-02] MEDS: Melatonin 3 MG TAB PO SCH (21:06)
[2018-04-02] MEDS: Carbidopa/Levodop CR 50/200(*) TAB.CR PO SCH (21:13)
[2018-04-03] MEDS: LORazepam TAB(*) 0.5 MG PO PRN ×3 (02:12→18:32)
[2018-04-03] MEDS: hydrOXYzine HCL TAB* 50 MG PO PRN (03:58)
[2018-04-03] MEDS: Cefepime 2 GM in Dextrose(*) 2 GM/50 ML BAG IV SCH ×2 (03:58→18:27)
[2018-04-03] MEDS: Heparin VIAL(*) 5000 UNITS/ML VIAL (FIVE THOUSAND) SUBCUT SCH ×3 (05:18→20:49)
[2018-04-03] MEDS: Carbidopa/Levodop 25/100 MG TAB(*) PO SCH ×5 (05:18→20:35)
[2018-04-03] MEDS: Levothyroxine TAB* 75 MCG TAB PO SCH (05:18)
[2018-04-03] MEDS: oxyCODONE TAB* 5 MG TAB PO PRN ×3 (05:18→20:34)
[2018-04-03 06:49] LABS: CO2 Carbon Dioxide 27 mmol/L (22-32); Calcium 8.4 mg/dL (8.6-10.3); Chloride 100 mmol/L (101-111); Magnesium 1.8 mg/dL (1.9-2.7); Sodium 135 mmol/L (135-145)
[2018-04-03 06:55] LABS: BUN/Creatinine Ratio 32.7 (8-20); Blood Urea Nitrogen 16 mg/dL (6-24); EGFR Non-African American 137.2 (>60); Glucose 88 mg/dL (70-100); Phosphorus 3.1 mg/dL (2.5-5.0)
[2018-04-03 07:16] LABS: Anion Gap 8 mmol/L (2-11)
[2018-04-03 07:38] LABS: Hematocrit 35 % (35-47); Hemoglobin 11.6 g/dl (12.0-16.0); Mean Corpuscular HGB Conc 33 g/dl (31-36); Mean Corpuscular Hemoglobin 29 pg (27-31); Mean Corpuscular Volume 86 fL (80-97); Platelet Count 210 10^3/ul (150-450); Red Blood Count 4.06 10^6/ul (4.00-5.40); Red Cell Distribution Width 15 % (10.5-15); White Blood Count 6.6 10^3/ul (3.5-10.8)
[2018-04-03] MEDS: Acetaminophen TAB* 325 MG PO SCH ×4 (08:30→20:33)
[2018-04-03] MEDS: OMEPRAZOLE 20 MG PO SCH (08:30)
[2018-04-03] MEDS: Calcium Carbonate TAB* 1250 MG (CALCIUM 500 MG) PO SCH ×2 (08:32→20:32)
[2018-04-03] MEDS: Amantadine CAP* 100 MG PO SCH ×2 (08:32→18:27)
[2018-04-03] MEDS: Torsemide TAB* 20 MG PO SCH (08:34)
[2018-04-03] MEDS: Lactobacillus Acidophilus* 1 TAB PO SCH ×3 (08:35→20:54)
[2018-04-03] MEDS: Potassium Chlor TAB* 20 MEQ TAB.ER PO SCH (08:35)
[2018-04-03] MEDS: predniSONE TAB* 5 MG PO SCH (08:36)
[2018-04-03] MEDS: Sertraline* 100 MG TAB PO SCH (08:36)
[2018-04-03] MEDS: Nystatin TOP POWDER* 15 GM BTL TOPICAL SCH ×3 (08:37→20:54)
[2018-04-03] MEDS: diPHENhydraMINE PO* 25 MG PO SCH (08:45)
[2018-04-03] MEDS: Gabapentin CAP(*) 100 MG PO SCH ×4 (08:45→20:33)
[2018-04-03 08:52] LABS: Immature Granulocytes 2 % (0-9); Lymphocytes % 23 %; Monocytes % 9 %; Myelocytes % 2 % (0-1); Neutrophil % 65 %
[2018-04-03 08:54] LABS: ABS Eosinophils 0.07 10^3/ul (0-0.6); ABS Neutrophils 4.42 10^3/ul (1.5-7.7)
[2018-04-03] MEDS ORDERED: Magnesium Sulfate 2 GM IV* 2 GM/50 ML BAG IVPB ONE (10:32)
--- NOTE | 2018-04-03 12:07 | CONS ---
CONSULTATION REPORT: DATE OF CONSULT: 04/03/18 REQUESTING PHYSICIAN: Dr. Ramos. CONSULTING SERVICE: Infectious Disease. REASON FOR CONSULT: Bilateral lower extremity wound infections. HISTORY OF PRESENT ILLNESS: This is a 42-year-old woman with obesity, chronic corticosteroid use, lymphedema, and venous insufficiency with chronic lower extremity ulcerations, admitted with cellulitis and fever. She [facility] [place], recently transferred her care to [facility], where she was found to have a fever and cellulitis associated with her bilateral lower extremity wounds, so she was brought into the hospital on 03/30/18 with a temperature of 39 degree celsius. She was started on clindamycin initially, wound cultures came back as above, and she was switched to cefepime, which she tolerated well and has had continued improvement in the leg swelling, redness, and pain each day. She has minimal drainage. She does not know if she has sleep apnea. She could not complete a sleep study. PAST MEDICAL HISTORY: 1. Lymphedema and venous insufficiency with chronic venous insufficiency ulceration to the lower extremities bilaterally. 2. Morbid obesity. 3. Crohn disease. 4. Osteoporosis. 5. Cataracts. 6. Arthritis. 7. Anemia. 8. Peripheral neuropathy. 9. Parkinsonism. 10. Anxiety. 11. Depression. 12. Rosacea. 13. Hypertension which has resolved. 14. Asthma. 15. Raynaud syndrome. 16. Irritable bowel syndrome. 17. Vaginal cysts, polyps and hyperplasia of the vagina. 18. Ocular migraines. 19. Pelvic fracture. 20. Provoked DVT and pulmonary embolism after surgery. 21. Status post hip fixation at . 22. Status post cholecystectomy. MEDICATIONS: 1. Tylenol. 2. Amantadine. 3. Calcium. 4. Sinemet. 5. Cefepime 2 g every 12 hours. 6. Cholestyramine. 7. Famotidine. 8. Gabapentin. 9. Lactobacillus. 10. Levothyroxine. 11. Magnesium. 12. Omeprazole. 13. Zofran. 14. Oxycodone. 15. Prednisone 50 mg a day. 16. Sertraline. 17. Torsemide. ALLERGIES: Tea, lobster, lavender, CHLORINE, AMBIEN, ASACOL, PAXIL, CONTROL PILLS, PENICILLIN caused rash, KEFLEX caused diarrhea, VANCOMYCIN caused rash, SULFA caused rash, PANTOPRAZOLE caused vomiting, LEVAQUIN caused rash, MERCAPTOPURINE caused cytopenia, B12 caused bladder pain. FAMILY HISTORY: Father had ischemic colitis, hypertension. Mother is healthy. SOCIAL HISTORY: She lives in [place] with her cat. She is a nonsmoker. No alcohol. REVIEW OF SYSTEMS: A 14-point review of systems was all negative except as noted above in the history of present illness. PHYSICAL EXAM: Vital Signs: Temperature 36.6, heart rate 70, respiratory rate 20, blood pressure 128/74, oxygen saturation 92% on room air. In general, she is awake, not in distress. Neurologic: She is oriented x3, follows all commands. HEENT: There is no conjunctival hemorrhage. Oropharynx without lesions. Neck: Supple without mass. Heart: Regular rate and rhythm without murmurs, rubs, or gallops. Lungs are clear to auscultation bilaterally. Abdomen: Soft, obese, nontender, and nondistended. Skin: There is no splinter hemorrhage. There is bilateral lower extremity nonpitting edema with medial ulceration, surrounding erythema, and purplish discoloration, slight serous drainage, no foul odor. DIAGNOSTIC STUDIES/LAB DATA: White blood cell count 6, hemoglobin 11, platelets 210, creatinine 0.5. IMPRESSION: 1. Chronic lymphedema complicated by bilateral lower extremity wounds, complicated by associated cellulitis. The wound cultures grew pseudomonas, proteus and group B strep. I do not know which are the pathogens here. She is improving on cefepime. She has extensive antibiotic allergies, so there are not a lot of great oral antibiotic options, short of oral antibiotic challenges to see what she tolerates. 2. Morbid obesity. 3. Crohn disease, on chronic corticosteroids. RECOMMENDATION: Continue cefepime another 24 hours here that will get her to 7 days of therapy, which I think is reasonable for her wound infections. She does [facility] with [facility]. I think a topical aminoglycoside for a couple of days might bridge her to her next wound clinic followup as well, that could be applied directly to the wounds. Please see impressions and recommendations outlined above. Thanks for asking me to see Ms. Connolly in consultation. [id number]/[place] #: [id number] [place]
[2018-04-03] MEDS ORDERED: Perflutren Lipid Microsphere* 3 ML VIAL ONE (13:55)
--- NOTE | 2018-04-03 15:15 | ECHO ---
Patient: JEWEL SHELL [facility] Rec#: [id number] : 1975 Date: 04/03/2018 Age: 42y Height: 168 cm / 66.1 in Weight: 164 kg / 361.5 lbs Sex: F BSA: 2.58 Room#: [facility] Admit Date#: 03/30/2018 Type: Inpatient Referring: Micah Ramos Reading: Phil Angel DO Shipping Track Supervisor: Megan Felix RDCS Transthoracic Echocardiogram Indication: CHF BP: 128/74 HR: 63 Rhythm: NSR Findings History: Morbid obesity,Crohn's disease,HTN,asthma,prior DVT/PE, lower extremity wounds. Technical Comments: The study is technically limited due to patient body habitus. Definity used for image enhancement. Completed at 1445. The study was technically limited due to the patient's inability to lay in the left lateral decubitus position. Left Ventricle: The left ventricular chamber size is normal. Mild concentric left ventricular hypertrophy is observed. Left ventricular systolic function is at the lower limits of normal. The estimated ejection fraction is 50-55%. The assessment of diastolic function is non-diagnostic. Left Atrium: The left atrium is not well visualized. Right Ventricle: The right ventricle is mildly dilated. The right ventricular global systolic function is mildly reduced. Right Atrium: The right atrium is not well visualized. Aortic Valve: The aortic valve is trileaflet. There is no evidence of aortic regurgitation. There is no evidence of aortic stenosis. Mitral Valve: The mitral valve leaflets appear normal. There is a trace of mitral regurgitation. There is no evidence of mitral stenosis. Tricuspid Valve: The tricuspid valve structure is not well visualized. Unable to estimate the right ventricular systolic pressure. Pulmonic Valve: The pulmonic valve appears normal. There is no evidence of pulmonic regurgitation. There is no pulmonic stenosis. Pericardium: There is no significant pericardial effusion. Aorta: There is no dilatation of the ascending aorta. There is no dilatation of the aortic arch. There is no dilation of the aortic root. Pulmonary Artery: The main pulmonary artery is not well visualized. Venous: The venous system is not well visualized. Contrast: Definity was used to optimize study. A total of 4 ml used. Intravenous contrast was used to enhance endocardial border definition. Conclusions The left ventricular chamber size is normal. Mild concentric left ventricular hypertrophy is observed. Left ventricular systolic function is at the lower limits of normal. The estimated ejection fraction is 50%. The left atrium is not well visualized. The right ventricle is mildly dilated. The right ventricular global systolic function is mildly reduced. The tricuspid valve structure is not well visualized. Unable to estimate the right ventricular systolic pressure. Definity was used to optimize study. Technically difficult study None prior for comparison at time of interpretation Measurements Name Value Normal Range RVIDd (AP) 2D 3.2 cm (0.9 - 2.6) IVSd (2D) 1.3 cm (0.6 - 1) LVPWd (2D) 1.1 cm (0.6 - 1) LVIDd (2D) 5 cm (3.6 - 5.4) LVIDs (2D) 3.4 cm - LV FS (2D) 32 % (25 - 45) Aortic Annulus 2.2 cm (1.4 - 2.6) Ao root diameter (2D) 3.3 cm (2.1 - 3.5) Ascending Ao 3.5 cm (2.1 - 3.4) Aortic arch 3.2 cm (1.8 - 3.4) Descending Ao 0.6 cm - Name Value Normal Range MV E-wave Vmax 1 m/sec - MV deceleration time 183 msec - MV A-wave Vmax 0.8 m/sec - MV E:A ratio 1.3 ratio - LV septal e' Vmax 0.1 m/sec - LV lateral e' Vmax 0.11 m/sec - LV E:e' septal ratio 10 ratio - LV E:e' lateral ratio 9.09 ratio - Name Value Normal Range AV Vmax 1.3 m/sec - AV VTI 30.6 cm - AV peak gradient 7 mmHg - AV mean gradient 3 mmHg - LVOT Vmax 0.9 m/sec - LVOT VTI 22.3 cm - LVOT peak gradient 3 mmHg - LVOT mean gradient 2 mmHg - Name Value Normal Range PV Vmax 0.9 m/sec - PV peak gradient 3 mmHg -
--- NOTE | 2018-04-03 16:03 | PN ---
Subjective Date of Service: 04/03/18 Interval History: Pt seen and examined. Meds and labs reviewed. CC: N/A ROS: Denied CANALES/dizziness, F/C, N/V, CP, SOB, increased cough, sputum production , abd pain, diarrhea, constipation, dysuria, myalgias, arthralgias, throat pain , and new skin lesions. The rest of the 14 point ROS are unremarkable. PHYSICAL EXAM: GEN APPEARANCE: Awake, not in acute distress, (+)obese HEENT: NC/AT, PERRLA, moist oral mucosa, (-) throat erythema NECK: Soft, supple, (-) cervical LAD, (-)JVD HEART: S1S2 WNL, RRR, No MRG CHEST: CTA, BL, GAE, No W/R/R ABD: Soft, ND/NT, NABS 4x Q EXT: No C/C/BLLE (+)2 edema, erythema, continues to improve; BL legs cdi SKIN: Warm to touch PSYCH: No active psychosis, hallucinations, depression, SI/HI ASSESSMENT AND PLAN: Objective Active Medications: Acetaminophen (Tylenol Tab*) 975 mg PO TID [facility] Last Admin: 04/03/18 13:18 Dose: 975 mg Amantadine HCl (Symmetrel Cap*) 100 mg PO BID@0900,1700 [facility] Last Admin: 04/03/18 08:32 Dose: 100 mg Calcium Carbonate (Calcium Carbonate Tab*) 1,250 mg PO BID [facility] Last Admin: 04/03/18 08:32 Dose: 1,250 mg Carbidopa/Levodopa (Sinemet 25/100 Tab(*)) 1 tab PO BEDTIME [facility] Last Admin: 04/02/18 21:07 Dose: 1 tab Carbidopa/Levodopa (Sinemet 25/100 Tab(*)) 1.5 tab PO DAILY@0900 [facility] Last Admin: 04/03/18 08:33 Dose: 1.5 tab Carbidopa/Levodopa (Sinemet 25/100 Tab(*)) 2 tab PO 0600,1200,1700 [facility] Last Admin: 04/03/18 13:16 Dose: 2 tab Carbidopa/Levodopa (Sinemet Cr 50/200(*)) 0.5 tab.cr PO BEDTIME [facility] Last Admin: 04/02/18 21:13 Dose: 0.5 tab.cr Cholestyramine Resin (Questran*) 4 gm PO BID PRN PRN Reason: DIARRHEA Diphenhydramine HCl (Benadryl Po*) 25 mg PO DAILY [facility] Last Admin: 04/03/18 08:45 Dose: Not Given Famotidine (Pepcid Tab*) 20 mg PO BID PRN; Protocol PRN Reason: INDIGESTION Gabapentin (Neurontin Cap(*)) 200 mg PO TID [facility] Last Admin: 04/03/18 13:18 Dose: Not Given Heparin Sodium (Porcine) (Heparin Vial(*)) 5,000 units SUBCUT Q8HR [facility] Last Admin: 04/03/18 13:16 Dose: 5,000 units Hydroxyzine HCl (Atarax Tab*) 50 mg PO TID PRN PRN Reason: ANXIETY Last Admin: 04/03/18 03:58 Dose: 50 mg Cefepime HCl (Maxipime 2 Gm In Dextrose Duplex (*)) 2 gm in 50 mls @ 100 mls/ hr IV Q12H [facility] Last Admin: 04/03/18 03:58 Dose: 100 mls/hr Lactobacillus Rhamnosus (Lactobacillus Acidophilus*) 1 tab PO BID [facility] Last Admin: 04/03/18 08:35 Dose: 1 tab Levothyroxine Sodium (Synthroid Tab*) 75 mcg PO DAILY@0600 [facility] Last Admin: 04/03/18 05:18 Dose: 75 mcg Lorazepam (Ativan Tab(*)) 0.5 mg PO Q4H PRN PRN Reason: ANXIETY Last Admin: 04/03/18 13:26 Dose: 0.5 mg Melatonin (Melatonin) 9 mg PO 2100 [facility] Last Admin: 04/02/18 21:06 Dose: 9 mg Nystatin (Nystatin Top Powder*) 1 applic TOPICAL TID [facility] Last Admin: 04/03/18 13:34 Dose: 1 applic Omeprazole (Prilosec Cap*) 40 mg PO DAILY@0730 [facility] Last Admin: 04/03/18 08:30 Dose: 40 mg Ondansetron HCl (Zofran Inj*) 4 mg IV Q6H PRN PRN Reason: NAUSEA Oxycodone HCl (Roxycodone Tab*) 5 mg PO Q6H PRN PRN Reason: PAIN Last Admin: 04/03/18 13:26 Dose: 5 mg Potassium Chloride (Klor Con Er Tab*) 20 meq PO DAILY [facility] Last Admin: 04/03/18 08:35 Dose: 20 meq Prednisone (Deltasone Tab*) 15 mg PO DAILY [facility] Last Admin: 04/03/18 08:36 Dose: 15 mg Sertraline HCl (Zoloft*) 100 mg PO DAILY [facility] Last Admin: 04/03/18 08:36 Dose: 100 mg Torsemide (Demadex*) 10 mg PO DAILY [facility] Last Admin: 04/03/18 08:34 Dose: 10 mg Vital Signs - 8 hr 04/03/18 04/03/18 04/03/18 11:52 13:26 15:23 Temperature 96.9 F Pulse Rate 71 Respiratory 18 18 16 Rate Blood Pressure 119/60 (mmHg) O2 Sat by Pulse 93 93 Oximetry Oxygen Devices in Use Now: None Result Diagrams: 04/03/18 07:28 04/03/18 07:28 Microbiology and Other Data: Microbiology 03/30/18 11:12 Aerobic Blood Culture - Preliminary Blood Venous No Growth Day 1 Anaerobic Blood Culture - Preliminary No Growth Day 1 03/30/18 10:41 Aerobic Blood Culture - Preliminary Blood Venous No Growth Day 1 Anaerobic Blood Culture - Preliminary No Growth Day 1 03/30/18 11:27 Skin and Soft Tissue MRSA/MSSA (PCR - Final Leg Right Mrsa Negative S.aureus Negative Gram Stain - Final 03/30/18 11:27 Skin and Soft Tissue MRSA/MSSA (PCR - Final Leg Left Mrsa Negative S.aureus Negative Gram Stain - Final 03/30/18 11:55 Influenza Types A,B Antigen - Final Nasal Specimen received for Influenza A/B Molecular testing Assess/Plan/Problems-Billing Assessment: - Patient Problems (1) Anxiety Current Visit: Yes Status: Acute Code(s): F41.9 - ANXIETY DISORDER, UNSPECIFIED SNOMED Code(s): 21746601 Comment: -Improved -Mentions that one doctor told her she was allergic to Buspar and one took it off her allergy list -At this time will continue to not prescribe Buspar given it can cause Parkinson s like syndrome and pt diagnosed w/Parkinsonism w/c likely led to its discontinueation previously -Will continue PRN Ativan and increase Hydroxyzine PRN -Continue anti-depressants (2) Lower extremity pain, bilateral Current Visit: Yes Status: Acute Code(s): M79.604 - PAIN IN RIGHT LEG; M79.605 - PAIN IN LEFT LEG SNOMED Code(s): 30561719 Comment: -Improved -Likely due to known neuropathy on top of BLLE cellulitis -Continue scheduled Tylenol dose -Will place pt on Gabapentin -Continue PRN Ketorolac (3) Cellulitis Current Visit: Yes Status: Acute Code(s): L03.90 - CELLULITIS, UNSPECIFIED SNOMED Code(s): 963341255 Comment: #BLLE cellulitis: -Blood Cx (-) x 4 days -Wound Cx: P. aeruginosa, Group B strep and P. Mirabilis; both sensitive to Cefepime; will D/C Clindamycin and place pt on Cefepime, abx day #05/17 -Touched base w/Dr. Vallejo and appreciate input -Will continue IV Cefepime for one more night and to transition to topical Gentamicin on planned D/C in AM (4) SOB (shortness of breath) Current Visit: Yes Status: Acute Code(s): R06.02 - SHORTNESS OF BREATH SNOMED Code(s): 404784652 Comment: -Improved -Likely due to iatrogenic pulmonary interstitial edema due to IVF therapy given septic presentation -Continue to hold IVF -Continue Torsemide -Received 1x IV Lasix 40 mg (04/01) -2D echo (04/03/18): EF = 50%, no wall motion abnormalities detected; likely diastolic CHF exacerbation (5) Sepsis Current Visit: Yes Status: Acute Comment: -Resolved -Likely due to above (6) Parkinson disease Current Visit: Yes Status: Acute Code(s): G20 - PARKINSON'S DISEASE SNOMED Code(s): 36710075 Comment: -Continue Carbidopa/Levodopa (7) Hypothyroidism Current Visit: Yes Status: Acute Code(s): E03.9 - HYPOTHYROIDISM, UNSPECIFIED SNOMED Code(s): 26350887 Comment: -Continue Levothyroxine -Will await TSH result (8) DVT prophylaxis Current Visit: Yes Status: Acute Code(s): GEN3579 - SNOMED Code(s): 963216103 Comment: -Continue Heparin SQq8H Status and Disposition: -Appreciate Dr. Carrillo input; will touch base in AM -Awaiting PT eval; pt mentions she lives with her mother and niece -Corrected Hypomagnesemia and will continue to follow -Possible D/C in AM
[2018-04-03] MEDS: Melatonin 3 MG TAB PO SCH (20:34)
[2018-04-03] MEDS: Carbidopa/Levodop CR 50/200(*) TAB.CR PO SCH (20:48)
[2018-04-04] MEDS: LORazepam TAB(*) 0.5 MG PO PRN ×3 (00:48→09:12)
[2018-04-04] MEDS: Cefepime 2 GM in Dextrose(*) 2 GM/50 ML BAG IV SCH ×2 (04:44→16:15)
[2018-04-04] MEDS: Carbidopa/Levodop 25/100 MG TAB(*) PO SCH ×4 (05:44→17:20)
[2018-04-04] MEDS: Levothyroxine TAB* 75 MCG TAB PO SCH (05:44)
[2018-04-04] MEDS: OMEPRAZOLE 20 MG PO SCH (05:44)
[2018-04-04] MEDS: Heparin VIAL(*) 5000 UNITS/ML VIAL (FIVE THOUSAND) SUBCUT SCH ×2 (05:45→12:44)
[2018-04-04] MEDS: Gabapentin CAP(*) 100 MG PO SCH ×2 (09:10→12:42)
[2018-04-04] MEDS: oxyCODONE TAB* 5 MG TAB PO PRN (09:11)
[2018-04-04] MEDS: Potassium Chlor TAB* 20 MEQ TAB.ER PO SCH (09:12)
[2018-04-04] MEDS: predniSONE TAB* 5 MG PO SCH (09:13)
[2018-04-04] MEDS: Amantadine CAP* 100 MG PO SCH ×2 (09:13→17:20)
[2018-04-04] MEDS: Sertraline* 100 MG TAB PO SCH (09:13)
[2018-04-04] MEDS: Acetaminophen TAB* 325 MG PO SCH ×2 (09:14→12:44)
[2018-04-04] MEDS: Lactobacillus Acidophilus* 1 TAB PO SCH (09:14)
[2018-04-04] MEDS: Calcium Carbonate TAB* 1250 MG (CALCIUM 500 MG) PO SCH (09:14)
[2018-04-04] MEDS: Torsemide TAB* 20 MG PO SCH (09:15)
[2018-04-04] MEDS: diPHENhydraMINE PO* 25 MG PO SCH (09:15)
[2018-04-04] MEDS ORDERED: Magnesium Sulfate 2 GM IV* 2 GM/50 ML BAG IVPB ONE (10:27)
[2018-04-04] MEDS: Nystatin TOP POWDER* 15 GM BTL TOPICAL SCH ×2 (12:03→12:45)
[2018-04-04 15:41] VITALS: BP 140/90
[2018-04-04] MEDS: hydrOXYzine HCL TAB* 50 MG PO PRN (17:20)
--- NOTE | 2018-04-04 20:21 | DS ---
CC: Dr. Luis Eduardo Worthy; Dr. Shanna Bañuelos; Dr. Van Vallejo * DISCHARGE SUMMARY: DATE OF ADMISSION: DATE OF DISCHARGE: 04/04/18 CONDITION: Stable. DISPOSITION: Home. DISCHARGE DIAGNOSES: As follows: 1. Cellulitis of bilateral lower extremities; wound culture positive for Pseudomonas aeruginosa, Proteus mirabilis, and group B strep; unclear which is a pathogen and/or colonization and/or commensal. 2. Chronic lymphedema, complicated by bilateral lower extremity wounds. 3. Morbid obesity. 4. Diastolic congestive heart failure exacerbation. 5. Anxiety, improved control. 6. Crohn disease, on chronic low-dose steroids, history of. DISCHARGE MEDICATIONS: As follows: 1. Tylenol 1000 mg p.o. t.i.d. 2. Amantadine 100 mg p.o. b.i.d. 3. Calcium carbonate 1200 mg p.o. b.i.d. 4. Sinemet 1 tab p.o. q.h.s. of 25/100 mg. 5. Sinemet 25/100 mg 1.5 tab p.o. b.i.d. and 2 tabs of Sinemet 25/100 mg p.o. b.i.d. 6. Cholestyramine 4 g p.o. b.i.d. 7. Diphenhydramine 25 mg p.o. daily. 8. Levothyroxine 75 mcg p.o. daily. 9. Lorazepam 0.5 mg p.o. q.8 hours p.r.n., 12 tabs dispensed with 0 refills. 10. Melatonin 10 mg p.o. at 2100. 11. Nystatin topical powder, apply to affected intertriginous area, topical t.i.d. for 14 days. 12. Omeprazole 40 mg p.o. daily. 13. Oxycodone 5 mg p.o. q.8 p.r.n., 12 tabs dispensed with 0 refills. 14. Potassium chloride 20 mEq p.o. daily. 15. Ranitidine 150 mg p.o. b.i.d. 16. Sertraline 100 mg p.o. daily. 17. Budesonide 9 mg p.o. daily. 18. Sinemet 25/100 mg 1 tab p.o. at 1999. 19. Ergocalciferol 25 mcg p.o. b.i.d. 20. Etodolac 400 mg p.o. t.i.d. 21. Gabapentin 200 mg p.o. t.i.d. 22. Gentamicin 0.1% cream 1 topically t.i.d. for 5 more days. 23. Hydroxyzine 50 mg p.o. t.i.d. p.r.n. 24. Floranex tab 2 tabs p.o. daily for 8 more days. 25. Prednisone 15 mg p.o. daily, dispensed 7 with 0 refills. The patient was asked to follow up with either PCP or gold leaf laborer. 26. Torsemide 10 mg p.o. daily. HISTORY OF PRESENT ILLNESS/HOSPITAL COURSE: The patient is a 42-year-old lady with a history of Crohn disease, on low-dose prednisone, morbid obesity, and osteoarthritis with known chronic lymphedema complicated by bilateral lower extremity wounds, who has been admitted on 03/30/18 with a chief complaint of fever and worsening leg wound. She was then diagnosed to have cellulitis and was placed initially on clindamycin, which was subsequently changed to cefepime per sensitivity data of cultures. She is positive for P aeruginosa, group B strep, and P mirabilis on wound culture; however, it is unclear if all of them are the pathogens leading to her hospitalization stay. This was then discussed with Dr. Vallejo, who mentioned to continue IV cefepime for 1 more day and possibly discontinue the following day which is today and he prefers gentamicin 0.1% cream for 5 more days and this has thus been prescribed. She also had some shortness of breath likely due to diastolic CHF exacerbation given aggressive fluid resuscitation. Given she is very fluid sensitive, we will place the patient on torsemide and we will discontinue Lasix as an outpatient. Her sepsis has resolved, likely due to her bilateral cellulitis. She had been advised to follow up and/or call her PCP within 3 days post discharge. She was advised to discuss with her PCP to guide her in safely losing weight. She was advised to follow up with her neurologist 1 week post discharge to review her Parkinson meds within 1 week. She was reminded to follow up with Dr. Vallejo in 1 week and to call his office to make/confirm appointment. She was also informed that she needs to discuss the use of her chronic low-dose steroids, which places her at an increased risk for secondary infection as well as increased risk of obesity given that she is already obese at this time. She had been informed that addressing this may further help her in losing weight in the future. She was advised to contact her PCP if she requires any refills of any of her prescribed controlled substances. She was advised that if her symptoms resume or develop new ones or feel unwell for any reason, to call her PCP first and if her PCP cannot entertain her due to scheduling issues alone, she was advised to call [facility] if the issue is nonemergent. She was advised to call my office regarding any questions , concerns, or further clarifications regarding her discharge plans and/or prescriptions and to take her medications as prescribed. REVIEW OF SYSTEMS: The patient denied any headaches, dizziness, fevers, chills , nausea, vomiting, chest pain, shortness of breath, increased coughing or sputum production, abdominal pain, diarrhea, constipation, pain and/or increased frequency on urination, myalgias, arthralgias, throat pain, or new skin lesions other than what was already described above. The rest of the 14- point review of systems is otherwise unremarkable. PHYSICAL EXAMINATION: Shows the most recent vital signs of record with blood pressure of 140/90 from previous of 105/57 from 139/71, 18 per minute respiratory rate, saturating at 98% on room air with temperature of 98.1 degrees Fahrenheit. General Appearance: The patient is awake, alert, and oriented x3, not in acute distress, obese. HEENT: Normocephalic, atraumatic. PERRLA. Extraocular muscles intact. Negative for icterus. Moist oral mucosa. Negative throat erythema. Neck is soft, supple with no cervical lymphadenopathy, no JVD. Heart: S1, S2, within normal limits. Regular rate and rhythm. No murmurs, rubs, or gallops. Chest: Clear to auscultation bilaterally. Good air entry. No wheezes, rales, or rhonchi. Abdomen is soft, nondistended, nontender. Normoactive bowel sounds x4 quadrants. Extremities: No cyanosis, clubbing, with 2 to 3+ bilateral lower extremity edema with bilateral lower extremity CVI. Psychiatric: No active psychosis, depression, suicidal or homicidal ideation, blunt affect. TIME SPENT: The total time spent evaluating the patient, reviewing pertinent data, and appropriate documentation is 65 minutes. [id number]/CPS #: [id number] [email or web address]
== END 2018-04-04 18:30 | disposition home or self-care (01) | DRG 871 ==
LOC: ED 10:13 → MED 14:31
PROVIDERS: ADMIT Internal Medicine; ATTEND Student in an Organized Health Care Education/Training Program
DX: A41.9 Sepsis, unspecified organism (principal); I50.31 Acute diastolic (congestive) heart failure; L03.116 Cellulitis of left lower limb; Z68.43 Body mass index [BMI] 50.0-59.9, adult; K50.90 Crohn's disease, unspecified, without complications; L03.115 Cellulitis of right lower limb; B96.5 Pseudomonas (aeruginosa) (mallei) (pseudomallei) as the cause of diseases classified elsewhere; B96.4 Proteus (mirabilis) (morganii) as the cause of diseases classified elsewhere; B95.1 Streptococcus, group B, as the cause of diseases classified elsewhere; E66.01 Morbid (severe) obesity due to excess calories; F41.9 Anxiety disorder, unspecified; I89.0 Lymphedema, not elsewhere classified; M19.90 Unspecified osteoarthritis, unspecified site; G20 Parkinson's disease; M81.0 Age-related osteoporosis without current pathological fracture; H26.9 Unspecified cataract; I65.8 Occlusion and stenosis of other precerebral arteries; G62.9 Polyneuropathy, unspecified; J45.20 Mild intermittent asthma, uncomplicated; E03.9 Hypothyroidism, unspecified; L71.9 Rosacea, unspecified; I45.10 Unspecified right bundle-branch block; R06.02 Shortness of breath; Z86.718 Personal history of other venous thrombosis and embolism; Z86.711 Personal history of pulmonary embolism; Z79.1 Long term (current) use of non-steroidal anti-inflammatories (NSAID); Z79.899 Other long term (current) drug therapy; Z88.2 Allergy status to sulfonamides; Z88.8 Allergy status to other drugs, medicaments and biological substances; Z88.1 Allergy status to other antibiotic agents; Z88.0 Allergy status to penicillin; Z91.013 Allergy to seafood; Z82.49 Family history of ischemic heart disease and other diseases of the circulatory system; Z80.1 Family history of malignant neoplasm of trachea, bronchus and lung; Z82.3 Family history of stroke; Z82.0 Family history of epilepsy and other diseases of the nervous system
CPT/HCPCS: 36415; 71045; 80048; 80053; 81003; 82550; 83605; 83735; 83880; 84100; 84484; 85025; 85610; 85652; 85730; 86140; 87040; 87070; 87077; 87184; 87186; 87205; 87640; 87641; 93005; 93306; 93970; 99284; A9270-GY; C8929; G8978-GP-CK; G8979-GP-CI; J0692; J0696; J1170; J1644; J1885; J1940; J2060; J3475; J7512